=== PATIENT | female | born 1945 | race Caucasian/White ===

== ENCOUNTER 2019-03-25 22:40 | Emergency (ER) | payer MEDICARE ==
[~2019-03-25] VITALS: Ht 144.8 cm; Wt 63.2 kg
[2019-03-25 22:47] VITALS: BP 182/84; PULSE 114; TEMP 98.3
[2019-03-25] MEDS ORDERED: GLUCOPHAGE500 MG/TAB PO (22:58)
[2019-03-25] MEDS ORDERED: LANTUS SOLOS100 U/ML SQ (22:58)
[2019-03-25] MEDS ORDERED: PAXIL 10MG10 MG PO (22:59)
[2019-03-25] MEDS ORDERED: NORVASC 5MG5 MG/TAB PO (23:00)
[2019-03-25] MEDS ORDERED: PRIL40 PO (23:00)
[2019-03-25] MEDS ORDERED: SYNTHROID0.05 MG/TA PO (23:00)
== END 2019-03-25 23:20 | disposition home or self-care (01) ==
LOC: COL.ER 22:40
DX: E11.9 Type 2 diabetes mellitus without complications (principal); F41.9 Anxiety disorder, unspecified; Z90.49 Acquired absence of other specified parts of digestive tract; Z79.4 Long term (current) use of insulin; Z51.81 Encounter for therapeutic drug level monitoring
CPT/HCPCS: J1815